=== PATIENT | female | born 1970 | race African-American/Black ===

== ENCOUNTER 2018-02-07 16:47 | Emergency (ER) | payer BC, MEDICAID ==
[~2018-02-07] VITALS: Ht 165.1 cm; Wt 59.0 kg
[2018-02-07 20:10] VITALS: BP 105/69
== END 2018-02-07 20:11 | disposition home or self-care (01) ==
LOC: ER 16:47
DX: R21 Rash and other nonspecific skin eruption (principal); L29.9 Pruritus, unspecified; T37.8X5A Adverse effect of other specified systemic anti-infectives and antiparasitics, initial encounter; F17.200 Nicotine dependence, unspecified, uncomplicated; Y92.89 Other specified places as the place of occurrence of the external cause
CPT/HCPCS: 99283

== ENCOUNTER 2019-10-13 03:22 | Emergency (ER) | payer SELFPAY ==
[~2019-10-13] VITALS: Ht 165.1 cm; Wt 70.0 kg
[2019-10-13 05:55] VITALS: BP 143/87
== END 2019-10-13 06:24 | disposition home or self-care (01) ==
LOC: ER 03:38
DX: R07.89 Other chest pain (principal); R11.2 Nausea with vomiting, unspecified; Z88.6 Allergy status to analgesic agent
CPT/HCPCS: 93005; 99283

== ENCOUNTER 2020-10-12 11:00 | Emergency (ER) | payer MEDICAID ==
[~2020-10-12] VITALS: Ht 165.1 cm; Wt 67.0 kg
[2020-10-12 11:33] LABS: BASOPHILS % 0.7 % (0.0-2.0); EOSINOPHILS % 0.7 % (0.0-5.0); HEMATOCRIT. 41.2 % (36.0-48.0); LYMPHOCYTES % 23.9 % (20.0-50.0); MEAN CORPUSCULAR HEMOGLOBIN 33.1 pg (28.0-32.0); MEAN CORPUSCULAR VOLUME 97.9 fL (81.0-99.0); MEAN PLATELET VOLUME 8.4 fl (7.4-10.4); MONOCYTES % 7.6 % (2.0-8.0); NEUTROPHILS % 67.1 % (40.0-76.0); PLATELET 227 x1000/uL (130-400); RED BLOOD CELL COUNT 4.21 mill/uL (4.2-5.4); RED CELL DISTRIBUTION WIDTH 12.8 % (11.6-14.6)
[2020-10-12 11:40] LABS: CHLORIDE 107 mEq/L (98-107)
[2020-10-12 11:43] LABS: ETHANOL BLOOD < 10 mg/dL
[2020-10-12 13:27] LABS: HCG SCREEN NEGATIVE
[2020-10-12 18:10] LABS: CLARITY URINE CLOUDY (CLEAR); COLOR URINE YELLOW (YELLOW); KETONES URINE TRACE (NEGATIVE); LEUKOCYTE ESTERASE URINE 1+ (NEGATIVE); NITRITE URINE POSITIVE (NEGATIVE); OCCULT BLOOD URINE NEGATIVE (NEGATIVE); PH URINE 5.5 (4.5-8.0); PROTEIN URINE TRACE (NEGATIVE); SPECIFIC GRAVITY URINE 1.027 (1.005-1.030)
[2020-10-12 18:22] LABS: *BARBITURATES SCREEN URINE NEGATIVE (NEGATIVE); *BENZODIAZEPINES SCREEN URINE NEGATIVE (NEGATIVE); *COCAINE SCREEN URINE NEGATIVE (NEGATIVE); METHADONE URINE SCREEN NEGATIVE (NEGATIVE); OPIATES URINE SCREEN NEGATIVE (NEGATIVE)
[2020-10-12 18:23] LABS: PHENCYCLIDINE URINE SCREEN NEGATIVE (NEGATIVE)
[2020-10-12 18:27] LABS: *AMPHETAMINES SCREEN URINE PRESUMTIVE POSITIVE (NEGATIVE); CANNABINOID URINE SCREEN PRESUMTIVE POSITIVE (NEGATIVE)
[2020-10-12 18:30] LABS: HEMATOCRIT 39.6 % (36.0-48.0); HEMOGLOBIN 13.2 g/dL (12.0-16.0); MEAN CORPUSCULAR HEMOGLOBIN 32.7 pg (28.0-32.0); MEAN CORPUSCULAR VOLUME 98.5 fL (81.0-99.0); PLATELET 245 x1000/uL (130-400); RED BLOOD CELL COUNT 4.02 mill/uL (4.2-5.4); RED CELL DISTRIBUTION WIDTH 12.9 % (11.6-14.6)
[2020-10-12 19:14] LABS: CHLORIDE 108 mEq/L (98-107)
[2020-10-13 12:13] VITALS: BP 128/89
== END 2020-10-13 13:12 | disposition home or self-care (01) ==
LOC: ER 11:00
DX: T43.292A Poisoning by other antidepressants, intentional self-harm, initial encounter (principal); N39.0 Urinary tract infection, site not specified; R53.83 Other fatigue; F32.9 Major depressive disorder, single episode, unspecified; Z98.890 Other specified postprocedural states; Z88.6 Allergy status to analgesic agent; Z20.822 Contact with and (suspected) exposure to COVID-19; Y92.89 Other specified places as the place of occurrence of the external cause
CPT/HCPCS: 36415; 70450; 71045; 80048; 80053; 80305; 80307; 80320; 80329; 81003; 82962; 84703; 85025; 85027; 87635; 93005; 99285; C9803; G0480

== ENCOUNTER 2022-12-17 17:28 | Emergency (ER) | payer MEDICAID ==
[~2022-12-17] VITALS: Ht 165.1 cm; Wt 75.0 kg
[2022-12-17 17:44] VITALS: BP 118/97
[2022-12-17] MEDS ORDERED: ACETAMINOPHEN 325MG TABLET PO ONE (21:15)
[2022-12-17 22:44] LABS: CLARITY URINE CLOUDY (CLEAR); COLOR URINE DARK YELLOW (YELLOW); KETONES URINE 1+ (NEGATIVE); LEUKOCYTE ESTERASE URINE 1+ (NEGATIVE); NITRITE URINE POSITIVE (NEGATIVE); OCCULT BLOOD URINE TRACE (NEGATIVE); PH URINE 5.5 (4.5-8.0); PROTEIN URINE TRACE (NEGATIVE); SPECIFIC GRAVITY URINE 1.027 (1.005-1.030)
[2022-12-17] MEDS ORDERED: ACETAMINOPHEN 325MG TABLET PO NR (23:15)
[2022-12-17] MEDS ORDERED: OLOP5DRO25 EACHEYE (23:46)
[2022-12-17] MEDS ORDERED: CLAR10 MT (23:46)
[2022-12-17] MEDS ORDERED: IBUP-1523 MT (23:46)
[2022-12-17] MEDS ORDERED: NITR-87 MT (23:46)
== END 2022-12-18 | disposition home or self-care (01) ==
LOC: ER 17:28
DX: N39.0 Urinary tract infection, site not specified (principal); F32.A Depression, unspecified; F41.9 Anxiety disorder, unspecified; Z98.890 Other specified postprocedural states; Z88.5 Allergy status to narcotic agent
CPT/HCPCS: 81003; 99283

== ENCOUNTER 2024-05-09 18:34 | Emergency (ER) | payer MEDICAID ==
[~2024-05-09] VITALS: Ht 167.6 cm; Wt 80.0 kg
[~2024-05-09 18:34] MED LIST: CLAR10 MT; IBUP-1523 MT; NITR-87 MT; OLOP5DRO25 EACHEYE
[2024-05-09 18:38] VITALS: O2SAT 98
[2024-05-09 19:12] VITALS: BP 120/85; PULSE 88; RESP 16; TEMP 98.2
[2024-05-09 19:34] LABS: CLARITY URINE CLOUDY (CLEAR); COLOR URINE YELLOW (YELLOW); GLUCOSE URINE NEGATIVE (NEGATIVE); KETONES URINE NEGATIVE (NEGATIVE); LEUKOCYTE ESTERASE URINE 1+ (NEGATIVE); NITRITE URINE POSITIVE (NEGATIVE); OCCULT BLOOD URINE NEGATIVE (NEGATIVE); PROTEIN URINE NEGATIVE (NEGATIVE); UROBILINOGEN URINE 0.2 E.U./dL (0.2-1.0)
[2024-05-09 19:49] LABS: BACTERIA URINE 2+; RBC URINE 0-2 /hpf (0-2); SQUAMOUS EPITHELIAL CELL URINE FEW /lpf (RARE/1+)
== END 2024-05-09 21:00 | disposition home or self-care (01) ==
LOC: ER 18:34
DX: F43.0 Acute stress reaction (principal); F32.9 Major depressive disorder, single episode, unspecified; Z98.890 Other specified postprocedural states; Z79.899 Other long term (current) drug therapy
CPT/HCPCS: 81003; 99283